=== PATIENT | male | born 1950 | race Caucasian/White ===

== ENCOUNTER 2021-02-05 15:13 | Emergency (ER) | payer BC, MEDICARE, OTHER ==
[~2021-02-05] VITALS: Ht 188 cm; Wt 118.6 kg
--- NOTE | 2021-02-05 15:25 | PHYS DOC ---
Adult General Chief Complaint Chief Complaint: ABDOMINAL PAIN HPI HPI Patient is a 70-year-old male presenting for abdominal pain. This is been going on for 1 week without any known inciting event, trauma, ingestion, exposure, sick contact or recent travel. Nothing known makes better, bearing down and certain twisting motions of abdomen make worse. Pain is focal to right lower quadrant and does not radiate. Timing of symptoms is inconsistent and waxes and wanes. Severity of pain is 8/10 during episodes otherwise is 0/10 at rest. He has never had this type of pain in the past. He has no history of any intra- abdominal abnormalities or surgeries. He has not had any concerning signs or symptoms such as fever, ripping or tearing sensation in the torso, chest pain, shortness of breath, nausea vomit diarrhea or urinary symptoms. He has had a colonoscopy in the past, last performed was over 10 years ago and normal. Denies any family history of colon cancer. Patient does admit he has been taking at least 12 full aspirin daily in attempt to alleviate his pain, he does not think this has been helping Review of Systems Review of Systems Fourteen body systems of review of systems have been reviewed. See HPI for pertinent positives and negative responses, other mckenzie all other systems are negative, non-pertinent or non-contributory Physical Exam Physical Exam Constitutional: Well developed, well nourished, no acute distress, non-toxic appearance. HENT: Normocephalic, atraumatic, bilateral external ears normal, oropharynx moist, no oral exudates, nose normal. Eyes: PERRLA, EOMI, conjunctiva normal, no discharge. Neck: Normal range of motion, no tenderness, supple, no stridor. Cardiovascular: Heart rate regular, sinus rhythm, no murmurs rubs or gallops Lungs & Thorax: Bilateral breath sounds clear to auscultation Abdomen: Bowel sounds normal, soft, no tenderness, no masses, no pulsatile masses. Nonsurgical abdomen, no peritoneal signs Skin: Warm, dry, no erythema, no rash. Back: No tenderness, no CVA tenderness. Extremities: No tenderness, no cyanosis, no clubbing, ROM intact, no edema. Neurologic: Alert and oriented X 3, grossly normal motor & sensory function, no focal deficits noted. Psychologic: Affect normal, judgement normal, mood normal. Current Patient Data Vital Signs Vital Signs Date Time Temp Pulse Resp B/P (MAP) Pulse Ox O2 Delivery O2 Flow Rate FiO2 02/05/21 15:23 98.1 84 20 199/108 (138) 97 Room Air Vital Signs Date Time Temp Pulse Resp B/P (MAP) Pulse Ox O2 Delivery O2 Flow Rate FiO2 02/05/21 15:23 98.1 84 20 199/108 (138) 97 Room Air Lab Results Laboratory Tests Test 02/05/21 15:47 White Blood Count 6.3 x10^3/uL Red Blood Count 4.54 x10^6/uL Hemoglobin 13.4 g/dL Hematocrit 38.9 % Mean Corpuscular Volume 86 fL Mean Corpuscular Hemoglobin 30 pg Mean Corpuscular Hemoglobin Concent 35 g/dL Red Cell Distribution Width 14.3 % Platelet Count 236 x10^3/uL Neutrophils (%) (Auto) 62 % Lymphocytes (%) (Auto) 28 % Monocytes (%) (Auto) 8 % Eosinophils (%) (Auto) 3 % Basophils (%) (Auto) 1 % Neutrophils # (Auto) 3.8 x10^3uL Lymphocytes # (Auto) 1.7 x10^3/uL Monocytes # (Auto) 0.5 x10^3/uL Eosinophils # (Auto) 0.2 x10^3/uL Basophils # (Auto) 0.0 x10^3/uL Sodium Level 143 mmol/L Potassium Level 4.2 mmol/L Chloride Level 103 mmol/L Carbon Dioxide Level 29 mmol/L Anion Gap 11 Blood Urea Nitrogen 16 mg/dL Creatinine 1.0 mg/dL Estimated GFR (Cockcroft-Gault) 73.5 BUN/Creatinine Ratio 16 Glucose Level 176 mg/dL Calcium Level 9.8 mg/dL Total Bilirubin 0.3 mg/dL Aspartate Amino Transf (AST/SGOT) 20 U/L Alanine Aminotransferase (ALT/SGPT) 26 U/L Alkaline Phosphatase 78 U/L Troponin I Quantitative < 0.017 ng/mL Total Protein 6.7 g/dL Albumin 3.8 g/dL Albumin/Globulin Ratio 1.3 EKG EKG EKG ordered and interpreted by myself at 1707 hrs. as sinus rhythm at 74 bpm, with a long PA at 278 and prolonged QTC at 460 no axis deviation, no obvious isc hemic findings, no STEMI Radiology/Procedures Radiology/Procedures Study: CT abdomen/pelvis without intravenous contrast Indication: Right lower quadrant pain for the past week. Comparison: None. Technique: Helical CT imaging performed of the abdomen and pelvis without the use of intravenous contrast. Sagittal and coronal reformats were obtained. One or more of the following individualized dose reduction techniques were utilized for this examination: 1. Automated exposure control 2. Adjustment of the mA and/or kV according to patient size 3. Use of iterative reconstruction technique. Findings: Inherently limited evaluation without intravenous contrast. Chest: Calcific coronary artery disease. There is the suggestion of mild circumferential thickening of the distal esophagus such as on image 26 series 3. Millimetric adjacent lymph node. Small hiatal hernia. Chronic reflux is possible. No localized infiltrate or significant nodule at the lung bases. Liver: No discrete parenchymal abnormality. Gallbladder/Biliary Tree: Prominent calcified gallstones. No CT findings of acute cholecystitis. Nondilated biliary tree. Pancreas: No peripancreatic inflammation. Spleen: Normal in size. Adrenal Glands: No adrenal gland mass. Kidneys/Ureters/Bladder: Small exophytic focus off the inferior pole of the right kidney measuring up to 1.4 cm with an internal density of approximately 12 Hounsfield units. No nephrolithiasis or collecting system dilatation. Unremarkable bladder. Reproductive Organs: No significant enlargement of the prostate measured at 4.4 cm transverse. Colon: Poorly evaluated mucosa without positive contrast. No suspicious localized wall thickening. Mild volume colonic stool burden. No pericolonic inflammation. Appendix: No findings of appendicitis. Small Bowel: Within normal limits for course and caliber. Stomach: Unremarkable. Vasculature: Scattered calcific atherosclerosis. Circumaortic renal venous drainage on the left. Lymph Nodes: No lymphadenopathy by size criteria. Peritoneum and Body Wall: No free fluid or pneumoperitoneum. No acute abnormality of the body wall soft tissues or significant chronic finding. Bones: Scattered degenerative changes. Mineralized disc bulges from L2-L3 through L5-S1. Narrowing of the central canal greatest at L4-L5 which could be moderate. Osseous neural foraminal stenosis greatest on the right at L5-S1. Miscellaneous: None. Impression: 1. No acute abnormality identified throughout the abdomen or pelvis. The appendix is unremarkable. No nephrolithiasis or collecting system dilatation. There are multiple prominent calcified gallstones but without CT findings of acute cholecystitis. 2. The bowel is not fully assessed without positive contrast. No suspicious localized wall thickening. Mild volume colonic stool burden. 3. Small exophytic focus off the lower pole of the right kidney measuring up to 1.4 cm is not fully characterized but measures cystic density. 4. Additional chronic observations to include calcific coronary artery disease and multifactorial degenerative changes of the lumbar spine with possible moderate central canal narrowing at L4-L5 and osseous neural foraminal stenosis greatest on the right at L5-S1. Electronically signed by: ROSEANNA MCKAY MD (02/05/2021 5:15 PM) [facility] Heart Score C/O Chest Pain: No HEART Score for Chest Pain: HEART Score for Chest Pain Response (Comments) Value History Slighlty/Non-Suspicious 0 ECG Normal 0 Age > 65 2 Risk Factors >3 Risk Factors or Hx CAD 2 Troponin < Normal Limit 0 Total 4 Risk Factors: Risk Factors: DM, Current or recent (<one month) smoker, HTN, HLP, family history of CAD, obesity. Risk Scores: Risk Factors: DM, Current or recent (<one month) smoker, HTN, HLP, family history of CAD, obesity. Course & Med Decision Making Course & Med Decision Making ABCs unremarkable. I disclosed entirety of ER findings and discussed most likely diagnosis of right-sided abdominal pain of unknown etiology, likely self- limiting and/or benign from a diagnosis such as constipation or muscular strain. Other diagnoses were discussed with patient such as gallbladder disease, appendicitis and other intra-abdominal emergencies but all deemed less likely causes of patient's presentation. Patient remained asymptomatic throughout entirety of ER visit. Patient wanting to have full evaluation before going overseas and was happy with reassurance and ER work-up provided. Plan of care discussed at length with need for close outpatient follow-up to review today's ER visit stressed. Strict return precautions were also discussed at length with good understanding verbalized by patient. Patient voiced understanding and agreement with the plan. Patient knows to come back for repeat evaluation if concerning signs or symptoms present prior to outpatient follow-up. Hemodynamically stable, ambulatory and well-appearing at time of disposition. Dragon Disclaimer Dragon Disclaimer This electronic medical record was generated, in whole or in part, using a voice recognition dictation system. Departure Departure: Impression: Primary Impression: Abdominal pain Additional Impression: Cyst of right kidney Disposition: HOME / SELF CARE / HOMELESS Condition: STABLE Referrals: LETI WEBBER MD (PCP) Additional Instructions: You have been evaluated in the Emergency Department today for abdominal pain. Your evaluation was not suggestive of any emergent condition requiring medical intervention at this time. However, some abdominal problems make take more time to appear. Therefore, it is important for you to watch for any new symptoms or worsening of your current condition. Return to the Emergency Department if you experience worsening pain, persistent fevers greater than 100.4, recurrent vomiting, blood in vomit, blood in stool, dark tarry stool, chest pain, difficulty breathing, or any other concerning symptoms. Problem Qualifiers NITA ARMENTA DO Feb 05, 2021 15:25
[2021-02-05 16:40] LABS: BASO % 1 % (0-3); EOS # 0.2 x10^3/uL (0.0-0.7); EOS % 3 % (0-3); HEMATOCRIT 38.9 % (39.0-53.0); HEMOGLOBIN 13.4 g/dL (13.0-17.5); LYMPH # 1.7 x10^3/uL (1.0-4.8); LYMPH % 28 % (24-48); MEAN CORPUSCULAR HEMOGLOBIN 30 pg (25-35); MEAN CORPUSCULAR HGB CONC 35 g/dL (31-37); MEAN CORPUSCULAR VOLUME 86 fL (79-100); MONO # 0.5 x10^3/uL (0.0-1.1); MONO % 8 % (0-9); NEUT # 3.8 x10^3uL (1.8-7.7); NEUT % 62 % (31-73); PLATELET COUNT 236 x10^3/uL (140-400); RED BLOOD COUNT 4.54 x10^6/uL (4.30-5.70); RED CELL DISTRIBUTION WIDTH 14.3 % (11.5-14.5); WHITE BLOOD COUNT 6.3 x10^3/uL (4.0-11.0)
[2021-02-05 16:41] LABS: CALCIUM 9.8 mg/dL (8.5-10.1); GFR 73.5; POTASSIUM 4.2 mmol/L (3.5-5.1)
[2021-02-05 16:47] LABS: ALBUMIN 3.8 g/dL (3.4-5.0); ALBUMIN/GLOBULIN RATIO 1.3 (1.0-1.7); TOTAL BILIRUBIN 0.3 mg/dL (0.2-1.0); TOTAL PROTEIN 6.7 g/dL (6.4-8.2)
--- NOTE | 2021-02-05 17:17 | RAD ---
Study: CT abdomen/pelvis without intravenous contrast Indication: Right lower quadrant pain for the past week. Comparison: None. Technique: Helical CT imaging performed of the abdomen and pelvis without the use of intravenous cont rast. Sagittal and coronal reformats were obtained. One or more of the following individualized dose reduction techniques were utilized for this examinat ion: 1. Automated exposure control 2. Adjustment of the mA and/or kV according to patient size 3. Use of iterative reconstruction technique. Findings: Inherently limited evaluation without intravenous contrast. Chest: Calcific coronary artery disease. There is the suggestion of mild circumferential thickening o f the distal esophagus such as on image 26 series 3. Millimetric adjacent lymph node. Small hiatal he rnia. Chronic reflux is possible. No localized infiltrate or significant nodule at the lung bases. Liver: No discrete parenchymal abnormality. Gallbladder/Biliary Tree: Prominent calcified gallstones. No CT findings of acute cholecystitis. Nond ilated biliary tree. Pancreas: No peripancreatic inflammation. Spleen: Normal in size. Adrenal Glands: No adrenal gland mass. Kidneys/Ureters/Bladder: Small exophytic focus off the inferior pole of the right kidney measuring up to 1.4 cm with an internal density of approximately 12 Hounsfield units. No nephrolithiasis or colle cting system dilatation. Unremarkable bladder. Reproductive Organs: No significant enlargement of the prostate measured at 4.4 cm transverse. Colon: Poorly evaluated mucosa without positive contrast. No suspicious localized wall thickening. Mi ld volume colonic stool burden. No pericolonic inflammation. Appendix: No findings of appendicitis. Small Bowel: Within normal limits for course and caliber. Stomach: Unremarkable. Vasculature: Scattered calcific atherosclerosis. Circumaortic renal venous drainage on the left. Lymph Nodes: No lymphadenopathy by size criteria. Peritoneum and Body Wall: No free fluid or pneumoperitoneum. No acute abnormality of the body wall so ft tissues or significant chronic finding. Bones: Scattered degenerative changes. Mineralized disc bulges from L2-L3 through L5-S1. Narrowing of the central canal greatest at L4-L5 which could be moderate. Osseous neural foraminal stenosis great est on the right at L5-S1. Miscellaneous: None. Impression: 1. No acute abnormality identified throughout the abdomen or pelvis. The appendix is unremarkable. N o nephrolithiasis or collecting system dilatation. There are multiple prominent calcified gallstones but without CT findings of acute cholecystitis. 2. The bowel is not fully assessed without positive contrast. No suspicious localized wall thickenin g. Mild volume colonic stool burden. 3. Small exophytic focus off the lower pole of the right kidney measuring up to 1.4 cm is not fully characterized but measures cystic density. 4. Additional chronic observations to include calcific coronary artery disease and multifactorial de generative changes of the lumbar spine with possible moderate central canal narrowing at L4-L5 and os seous neural foraminal stenosis greatest on the right at L5-S1. Electronically signed by: ROSEANNA MCKAY MD (02/05/2021 5:15 PM) [facility]
--- NOTE | 2021-02-05 17:22 | EKG ---
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
[2021-02-05 17:30] VITALS: BP 136/81
== END 2021-02-05 18:26 | disposition home or self-care (01) ==
LOC: ER 15:13
DX: N28.1 Cyst of kidney, acquired (principal); R10.31 Right lower quadrant pain; Z59.0 Homelessness
CPT/HCPCS: 36415; 74176; 80053; 84484; 85025; 93005; 99285

== ENCOUNTER → 2021-03-02 | Outpatient (CLI) | payer BC, MEDICARE, OTHER ==
[2021-02-05 17:30] VITALS: BP 136/81
[~2021-03-02] MED LIST: IOHEXOL 240 MG/ML 50ML VIAL. ONE; IOHEXOL 240 MG/ML 50ML VIAL. PO ONE
[2021-03-02] MEDS: IOHEXOL 300 MG/ML 75 ML VIAL. IV ONE (10:44)
--- NOTE | 2021-03-02 14:24 | RAD ---
EXAM: CT ABDOMEN/PELVIS WITH CONTRAST. HISTORY: Right lower quadrant pain. TECHNIQUE: Computed tomography of the abdomen and pelvis was performed after the intravenous administ ration of iodinated contrast. One or more of the following individualized dose reduction techniques w ere utilized for this examination: 1. Automated exposure control. 2. Adjustment of the mA and/or kV according to patient size. 3. Use of iterative reconstruction technique. COMPARISON: 02/05/2021. FINDINGS: Lung windows through the visualized portions of the bases reveal mild atelectasis. There ar e atherosclerotic calcifications of the coronary arteries. There is a small hiatal hernia. Bone windo ws reveal no suspicious lesions. Multiple gallstones are noted in the gallbladder. There is no pericholecystic inflammation. There is no biliary dilatation. A 6 mm hypoattenuating lesion within segment 2 is likely a benign cyst or angioma. The pancreas, adre nal glands, spleen and kidneys are unremarkable. Note is made of respiratory motion artifact. There are no pathologically enlarged lymph nodes. The appendix is not inflamed. A filling defect with in the cecum is most likely stool but is indeterminate. It measures 3.4 cm. IMPRESSION: 1. A 3.4 cm filling defect within the cecum is most likely stool. Correlation with current coloscopic results is recommended to exclude a mass. 2. Cholelithiasis. 3. Small hiatal hernia. Electronically signed by: Chata Escalona MD (03/02/2021 2:22 PM) [id number]
== END ==
LOC: CT 09:19
PROVIDERS: ATTEND Nurse Practitioner Adult Health
DX: K80.20 Calculus of gallbladder without cholecystitis without obstruction (principal); K44.9 Diaphragmatic hernia without obstruction or gangrene; I25.10 Atherosclerotic heart disease of native coronary artery without angina pectoris; J98.11 Atelectasis
CPT/HCPCS: 74177; Q9967

== ENCOUNTER 2021-09-25 08:05 | Emergency (ER) | payer BC, MEDICARE, OTHER ==
[~2021-09-25] VITALS: Ht 188 cm; Wt 118.6 kg
[2021-09-25 08:05] VITALS: BP 147/94
--- NOTE | 2021-09-25 08:31 | PHYS DOC ---
Past History Additional Past Medical Histor: neuropathy Past Surgical History: Tonsillectomy, Other Additional Past Surgical Histo: r bone spur heel, knee surg Alcohol Use: Rarely General Adult EDM: Chief Complaint: FLU SYMPTOM HPI: HPI: Patient is a 71-year-old male coming in for upper respiratory symptoms. Patient states that he went to the pharmacy for a COVID test earlier but did not want to wait the 2 hours for the next available appointment. She has had symptoms of the past couple of days. Took a Madeleine aspirin last night but is not taking any cold medicines or decongestants. Has had his COVID vaccines but is concerned because of his symptoms and just wants a COVID test. Review of Systems: Review of Systems: All other systems within normal limits except for as noted in the HPI Allergies: Allergies: Allergies Coded Allergies Type Severity Reaction Last Updated Verified No Known Drug Allergies 02/05/21 No Physical Exam: PE: Constitutional: Well developed, well nourished, no acute distress, non-toxic appearance. [] HENT: Normocephalic, atraumatic, bilateral external ears normal, nose normal. Mild erythema posterior pharynx, no exudates [] Eyes: PERRLA, conjunctiva normal, no discharge. [] Neck: No rigidity, supple, no stridor. [] Cardiovascular: Regular rate and rhythm, brisk cap refill [] Lungs & Thorax: Non labored symmetric respirations, no tachypnea or respiratory distress [] Abdomen: Soft, nondistended. Skin: Warm, dry, no erythema, no rash. [] Back: Unremarkable Extremities: No deformities, range of motion grossly intact, no lower extremity edema [] Neurologic: Alert and oriented X 3, no focal deficits noted. [] Psychologic: Affect normal, judgement normal, mood normal. [] EKG: EKG: [] Radiology/Procedures: Radiology/Procedures: [] Heart Score: C/O Chest Pain: No Risk Factors: Risk Factors: DM, Current or recent (<one month) smoker, HTN, HLP, family history of CAD, obesity. Risk Scores: Score 0 - 3: 2.5% MACE over next 6 weeks - Discharge Home Score 4 - 6: 20.3% MACE over next 6 weeks - Admit for Clinical Observation Score 7 - 10: 72.7% MACE over next 6 weeks - Early Invasive Strategies Course & Med Decision Making: Course & Med Decision Making Pertinent Labs and Imaging studies reviewed. (See chart for details) [] Yenion Disclaimer: Dragon Disclaimer: This electronic medical record was generated, in whole or in part, using a voice recognition dictation system. Departure Departure: Impression: Primary Impression: COVID-19 Disposition: HOME / SELF CARE / HOMELESS Condition: STABLE Referrals: LETI WEBBER MD (PCP) Additional Instructions: You have been tested for or diagnosed with COVID-19. It is an infection caused by a new type of coronavirus. COVID-19 will cause cold-like or mild flu symptoms in most. It can cause more severe symptoms like problems breathing in some. There is no treatment for COVID-19. The body will clear the infection over time. Self-care will help to ease discomfort. Steps to Take: Self-Care Rest as needed. Healthy habits may help you feel better. Steps include: Choose healthy foods including fruits and vegetables. Drink water throughout the day. Get plenty of sleep each night. If you smoke, try to quit. It may ease breathing. Avoid alcohol. Keep Others Healthy The virus can spread to others. Droplets are released every time you sneeze or cough. The droplets can get into the mouth, nose, or eyes of people near you and lead to infection. To lower the chances of spreading COVID-19 to others: Stay at home until your doctor has said it is safe to leave. If you tested positive this will mean staying isolated until both of the following are true: At least 7 days have passed since the start of illness. You are free of fever for at least 72 hours without the use of medicine. During this time: - Avoid public areas, events, or transportation. Do not return to work or school until your doctor has said it is safe to do so. - Call ahead if you need to go to a medical center. Let them know you may have COVID-19. It will help them guide you where to go. They may also ask you to wear a facemask when you come to the office. - If you call for emergency medical services, let them know you may have COVID- 19. While at home: - Try to avoid close contact with others. Stay about 6 feet away. - If possible, spend most of your time in a separate room from others. - Use a face mask if you will be in close contact with others such as sharing a room or vehicle. - Have someone wipe down common surfaces in the home. Use household day trader every day on areas like doorknobs, counters, or sinks. - Cough or sneeze into a tissue. Throw the tissue away right after use. If a tissue is not available, cough or sneeze into your elbow. - Wash your hands often. Wash them after sneezing or coughing. Use soap and water and wash for at least 20 seconds. Alcohol based hand parts cleaner can be used if soap and water is not available. - Do not prepare food for others. Avoid sharing personal items like forks, spoons, or toothbrushes. - Avoid close contact with pets while you are sick. There is no evidence of the virus passing to pets. This is a safety step until more is known about this virus. Isolation can be frustrating. Social interaction can help. Keep in touch with friends and family through phone and tech options. You can still interact with others in your home, just keep a safe distance of about 6 feet. Follow-up: Your doctors office will check in with you to see if there are any changes in your health. You may be asked to keep track of symptoms to share with them. They will also let you know when you are clear to be in public again. Problems to Look Out For: Contact your doctor if your recovery is not going as you expect. Get emergency care if you have problems such as: - Trouble breathing - Nonstop chest pain or pressure - Changes in awareness, confusion, or problems waking - Lips or face have bluish color - Worsening of symptoms If you think you have an emergency, call for emergency medical services right away. [facility] SAMPS[facility] MD September 25, 2021 08:31
[2021-09-25 09:07] LABS: INFLUENZA A PATIENT NEGATIVE (NEGATIVE); INFLUENZA B PATIENT NEGATIVE (NEGATIVE)
== END 2021-09-25 09:20 | disposition home or self-care (01) ==
LOC: ER 08:05
DX: U07.1 COVID-19 (principal)
CPT/HCPCS: 87070; 87428; 87880; 99283; C9803; U0003